=== PATIENT | female | born 1985 | race Two or more races ===

== ENCOUNTER 2023-01-20 06:00 | Day surgery (SDC) | payer OTHER ==
[2023-01-18 10:46] LABS: URINE APPEARANCE Clear; URINE BILIRRUBIN Negative (NEGATIVE); URINE BLOOD Negative; URINE COLOR Dark Yellow; URINE GLUCOSE Negative (NEGATIVE); URINE LEUKOCYTE Negative; URINE NITRATE Negative; URINE PROTEIN Trace (NEGATIVE)
[2023-01-18 10:51] LABS: URINE EPITHELIAL CELLS 16.3 uL (0.0-38.8); URINE RBC 8.6 uL (0.0-20.8); URINE WBC 16.6 uL (0.0-23.2)
[2023-01-18 10:51] LABS: HEMATOCRIT 39.3 % (36.0-45.00); HEMOGLOBIN 13.3 g/dL (12.0-15.00); MEAN CELL VOLUME 88.4 fL (80.00-100.00); PLATELET COUNT 247 K/uL (150-450); RED BLOOD COUNT 4.44 M/uL (4.00-6.00); RED CELL DISTRIBUTION WIDTH 13.8 % (11.5-14.5)
[2023-01-18 11:21] LABS: ALBUMIN 3.6 gm/dL (3.4-5.0); BILIRUBIN TOTAL 0.34 mg/dL (0.3-1.2); CALCIUM 9.4 mg/dL (8.5-10.1); CREATININE SERUM 0.76 mg/dL (0.55-1.02); GFR 85.63; GLOBULINA 3.8 G/DL (2.4-3.5); POTASSIUM 4.41 mEq/L (3.5-5.1); TOTAL PROTEIN 7.4 gm/dL (6.4-8.2)
[2023-01-18 11:24] LABS: INR 0.98; PARTIAL THROMBOPLASTIN TIME 28.4 SECONDS (22.0-34.0); PROTHROMBIN TIME 10.3 SECONDS (9.0-11.5)
== END 2023-01-20 17:20 | disposition home or self-care (01) ==
LOC: CIR.AMB 06:00 → EDBD 15:30 → CIR.AMB 15:30
PROVIDERS: ATTEND Surgery
DX: D24.1 Benign neoplasm of right breast (principal); D24.2 Benign neoplasm of left breast; N60.21 Fibroadenosis of right breast; N60.22 Fibroadenosis of left breast; I10 Essential (primary) hypertension; E04.1 Nontoxic single thyroid nodule; Z20.822 Contact with and (suspected) exposure to COVID-19